=== PATIENT | male | born 1970 | race African-American/Black ===

== ENCOUNTER 2022-07-30 15:24 | Inpatient (IN) | payer MEDICAID, OTHER ==
[~2022-07-30] VITALS: Ht 185.4 cm; Wt 94.9 kg
[2022-07-30 15:59] LABS: Basophils # (auto) 0.1 10 ^3/uL (0-0.2); Basophils % (auto) 1.3 % (0.0-2.0); Hematocrit 34.1 % (41.0-53.0); Monocytes # (auto) 0.4 10 ^3/uL (0-1.3); Neutrophils # (auto) 4.2 10 ^3/uL (1.6-8.6); Nucleated Red Blood Cells % 0.2 %; White Blood Cell 5.9 10^3/uL (4.4-10.8)
[2022-07-30 16:01] LABS: Eosinophils # (auto) 0.3 10 ^3/uL (0-0.8); Eosinophils % (auto) 4.3 % (0.0-7.0); Lymphocytes % (auto) 16.3 % (10.0-50.0); Mean Corpuscular Hemoglobin 26.4 pg (28.0-32.0); Mean Corpuscular Hgb Conc. 32.3 g/dL (32.0-36.0); Mean Corpuscular Volume 81.9 fL (80.0-100.0); Monocytes % (auto) 7.3 % (0.0-12.0); Neutrophils % (auto) 70.8 % (37.0-80.0); Red Blood Cells 4.16 10^6/uL (4.5-5.90); Red Cell Distribution Width 15.9 % (11.8-14.3)
[2022-07-30 16:19] LABS: Albumin 3.4 g/dL (3.4-5.0); Calcium 8.4 mg/dL (8.5-10.1); Potassium 3.9 mmol/L (3.5-5.1)
[2022-07-30 16:24] LABS: BUN/Creatinine Ratio 10.7 (10.0-20.0); Bilirubin, Total 0.5 mg/dL (0.2-1.0); Total Protein 7.2 g/dL (6.4-8.2)
[2022-07-30] MEDS ORDERED: ASPirin-EC 81 mg tab PO ONE (22:00)
[2022-07-30] MEDS ORDERED: ACETAMINOPHEN 325 MG TAB PO PRN (22:00)
[2022-07-30] MEDS ORDERED: DOCUSATE SOD 100 MG CAP PO PRN (22:00)
[2022-07-30] MEDS ORDERED: LACTATED RINGER'S 1,000 ML IV ONE (22:15)
[2022-07-31] MEDS: SODIUM CHLOR 0.9% PF (SALINE LOCK) 10ML VIAL/SYR IV SCH ×5 (01:26→21:38)
[2022-07-31] MEDS: HYDROcodone-ACET 5/325MG TAB PO PRN ×2 (02:05→15:07)
[2022-07-31 05:37] LABS: Basophils # (auto) 0.1 10 ^3/uL (0-0.2); Eosinophils # (auto) 0.3 10 ^3/uL (0-0.8); Eosinophils % (auto) 5.6 % (0.0-7.0); Hematocrit 35.9 % (41.0-53.0); Hemoglobin 11.6 g/dL (13.5-17.5); Lymphocytes # (auto) 1.2 10 ^3/uL (0.4-5.4); Lymphocytes % (auto) 20.4 % (10.0-50.0); Mean Corpuscular Hemoglobin 26.6 pg (28.0-32.0); Mean Corpuscular Hgb Conc. 32.4 g/dL (32.0-36.0); Mean Corpuscular Volume 81.9 fL (80.0-100.0); Monocytes # (auto) 0.4 10 ^3/uL (0-1.3); Monocytes % (auto) 6.8 % (0.0-12.0); Neutrophils % (auto) 66.2 % (37.0-80.0); Nucleated Red Blood Cells % 0.1 %; Red Blood Cells 4.38 10^6/uL (4.5-5.90); Red Cell Distribution Width 16.4 % (11.8-14.3); White Blood Cell 6.1 10^3/uL (4.4-10.8)
[2022-07-31 06:02] LABS: Potassium 4.4 mmol/L (3.5-5.1)
[2022-07-31 06:13] LABS: Albumin 3.4 g/dL (3.4-5.0); BUN/Creatinine Ratio 11.8 (10.0-20.0); Bilirubin, Total 0.6 mg/dL (0.2-1.0); Calcium 8.8 mg/dL (8.5-10.1); Total Protein 7.6 g/dL (6.4-8.2)
[2022-07-31] MEDS: ATORVASTATIN 20 MG TAB PO SCH (12:13)
[2022-07-31] MEDS ORDERED: METOPROLOL TARTRATE 1MG/1ML-5ML VIAL IV PRN (14:30)
[2022-07-31] MEDS ORDERED: hydrALAZINE HCL 20 MG/ML VL IV PRN (18:15)
[2022-07-31] MEDS: LABETALOL HCL 5 MG/ML 4ML SYRINGE IV PRN ×2 (19:07→23:58)
[2022-07-31] MEDS ORDERED: LORazepam 2MG/ML-1ML VIAL IV PRN (20:30)
[2022-07-31] MEDS: levETIRAcetam 500 MG TAB PO SCH (21:36)
[2022-07-31] MEDS: METOPROLOL TARTRATE 25 MG TAB PO SCH (21:36)
[2022-07-31 22:00] VITALS: BP 159/116
[2022-07-31] MEDS ORDERED: PROMETHAZINE HCL 25 MG/ML 1ML IV ONE (23:30)
[2022-08-01] VITALS (7 sets, daily range): BP systolic 114–162; BP diastolic 91–120
[2022-08-01] MEDS: HYDROcodone-ACET 5/325MG TAB PO PRN ×2 (00:28→21:56)
[2022-08-01] MEDS ORDERED: ONDANSETRON HCL 4 MG/2 ML VIAL IV PRN (02:30)
[2022-08-01 06:38] LABS: Eosinophils # (auto) 0.1 10 ^3/uL (0-0.8); Hemoglobin 12.4 g/dL (13.5-17.5); Lymphocytes # (auto) 0.9 10 ^3/uL (0.4-5.4); Mean Corpuscular Hemoglobin 26.5 pg (28.0-32.0); Monocytes # (auto) 0.4 10 ^3/uL (0-1.3); White Blood Cell 6.5 10^3/uL (4.4-10.8)
[2022-08-01 06:40] LABS: Basophils # (auto) 0.1 10 ^3/uL (0-0.2); Eosinophils % (auto) 1.5 % (0.0-7.0); Hematocrit 38.7 % (41.0-53.0); Lymphocytes % (auto) 14.3 % (10.0-50.0); Mean Corpuscular Hgb Conc. 32.1 g/dL (32.0-36.0); Mean Corpuscular Volume 82.5 fL (80.0-100.0); Monocytes % (auto) 6.2 % (0.0-12.0); Nucleated Red Blood Cells % 0.1 %; Red Blood Cells 4.69 10^6/uL (4.5-5.90)
[2022-08-01 06:49] LABS: Calcium 8.8 mg/dL (8.5-10.1); Potassium 4.7 mmol/L (3.5-5.1)
[2022-08-01] MEDS: SODIUM CHLOR 0.9% PF (SALINE LOCK) 10ML VIAL/SYR IV SCH ×3 (06:51→21:56)
[2022-08-01] MEDS: levETIRAcetam 500 MG TAB PO SCH ×2 (09:55→21:55)
[2022-08-01] MEDS: ATORVASTATIN 20 MG TAB PO SCH (09:55)
[2022-08-01] MEDS: METOPROLOL TARTRATE 25 MG TAB PO SCH ×2 (09:57→21:55)
[2022-08-01 11:10] LABS: Cholesterol 105 mg/dL (< 200); HDL Cholesterol 30 mg/dL (40-59); LDL Cholesterol 71 mg/dL (< 100); Triglycerides 56 mg/dL (< 150)
[2022-08-02 06:00] VITALS: BP 147/98
[2022-08-02] MEDS: SODIUM CHLOR 0.9% PF (SALINE LOCK) 10ML VIAL/SYR IV SCH ×2 (06:44→14:00)
[2022-08-02 08:00] VITALS: BP 145/96
[2022-08-02] MEDS: ATORVASTATIN 20 MG TAB PO SCH (08:54)
[2022-08-02] MEDS: levETIRAcetam 500 MG TAB PO SCH (08:58)
[2022-08-02] MEDS: METOPROLOL TARTRATE 25 MG TAB PO SCH (08:58)
[2022-08-02 09:01] VITALS: BP 145/96
[2022-08-02] MEDS ORDERED: APIX5TAB PO (10:16)
[2022-08-02] MEDS ORDERED: ALBU108A14 IN ×2 (10:16)
[2022-08-02] MEDS ORDERED: KEP500T PO (10:16)
[2022-08-02] MEDS ORDERED: MET50T PO (10:16)
[2022-08-02 13:00] VITALS: BP 113/53
[2022-08-02 17:26] VITALS: BP 154/111
== END 2022-08-02 18:01 | disposition home or self-care (01) | DRG 47 ==
LOC: ER 15:35 → TELE 22:01 → TELE-WESTW 07-31 21:00
PROVIDERS: ADMIT Internal Medicine; ATTEND Internal Medicine Pulmonary Disease
DX: G45.9 Transient cerebral ischemic attack, unspecified (principal); N17.9 Acute kidney failure, unspecified; G40.909 Epilepsy, unspecified, not intractable, without status epilepticus; R47.81 Slurred speech; I10 Essential (primary) hypertension; I48.91 Unspecified atrial fibrillation; Z53.29 Procedure and treatment not carried out because of patient's decision for other reasons; Z79.82 Long term (current) use of aspirin; Z79.899 Other long term (current) drug therapy
CPT/HCPCS: 36415; 70450; 70551; 71045; 80048; 80053; 80061; 82607; 83036; 83880; 84443; 84484; 85025; 93005; 93306; 93886; 93971; 97163; G0378; J2405; J3490